=== PATIENT | male | born 1950 | race Caucasian/White ===

== ENCOUNTER → 2018-12-30 | Outpatient (CLI) | payer OTHER ==
[~2018-12-30] MED LIST: ASPIR 8181 MG PO; B-100 COMPLEX1 EAC1 PO; GLUCOSAMINE &1 EAC1 PO; VITAMIN B-12500 MCG PO; VITAMIN D1000 UNIT PO; ZYRTEC10 M5 PO
== END ==
LOC: CAT 13:20
DX: Z13.6 Encounter for screening for cardiovascular disorders (principal); E78.00 Pure hypercholesterolemia, unspecified; I25.10 Atherosclerotic heart disease of native coronary artery without angina pectoris